=== PATIENT | female | born 2000 | race Caucasian/White ===

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

== ENCOUNTER 2019-04-28 16:55 | Outpatient (CLI) | payer OTHER ==
[2019-04-28 17:35] VITALS: BP 125/77; PULSE 84; RESP 17; TEMP 97
--- NOTE | 2019-05-19 12:43 | P.MSEPDOC ---
Presenting Problems - Arrival Data Date of Arrival on Unit: 04/28/19 Time of Arrival on Unit: 16:55 Mode of Transport: Ambulatory - Complaint OB-Reason for Admission/Chief Complaint: Decreased Movement Comment: pt here with c/o of no movement since 0100 today, pt reports lower back for last several weeks, abd soft and non tender, denies regular contractions, denies lof/vb, denies complications with Medical History - Information : 1 Para: 0 Term: 0 : 0 Abortions: Spontaneous or Elective: 0 Number of Living Children: 0 - Gestational Age Gestational Age by ISABEL (wks/days): 38 Weeks and 1 Days Review of Systems - Review of Systems Constitutional: No problems Breast: No problems ENT: No problems Cardiovascular: No problems Respiratory: No problems Gastrointestinal: No problems Genitourinary: No problems Musculoskeletal: No problems Neurological: No problems Skin: No problems Vital Signs - Temperature Temperature: 97.0 F Temperature Source: Temporal Artery Scan - Pulse Right Brachial Pulse Rate: 84 Pulse Assessment Method: Automatic Cuff - Respirations Respiratory Rate: 17 Oxygen Delivery Method: Room Air O2 Sat by Pulse Oximetry: 98 - Blood Pressure Right Arm Blood Pressure: 125/77 Blood Pressure Mean: 93 Blood Pressure Source: Automatic Cuff Medical Screen Scoring (Pre) - Cervical Exam Dilation: Exam Deferred Effacement: Exam Deferred Membranes: Intact - Uterine Contractions Frequency: N/A Duration: N/A Intensity: N/A - Maternal Vital Signs Maternal Temperature: N/A Maternal Blood Pressure: N/A Signs of Preeclampsia: N/A Maternal Respirations: N/A - Maternal Trauma Maternal Trauma: N/A - Assessment - Baby A Baseline FHR: 140 Heart Rate - NICHD Category: Category I (Normal) = 0 NST: Reactive Position: N/A Station: N/A - Total Score - Baby A Total Score - Baby A: 0 - Total Score - Baby B Total Score - Baby B: 0 - Total Score - Baby C Total Score - Baby C: 0 - Level of Risk - Baby A Level of Risk - Baby A: Low (0-5) - Level of Risk - Baby B Level of Risk - Baby B: Low (0-5) - Level of Risk - Baby C Level of Risk - Baby C: Low (0-5) Physician Notification (Pre) - Physician Notified Physician Notified Date: 04/28/19 Physician Notified Time: 17:21 Physician/Practitioner Notifed:: Dr Renteria Spoke With: Dr Renteria New Order Received: Yes (dc home) - Notification Comment Comment: pt ok to dc home at this time, pt has appt with dr donaldson thursday 05/03 Disposition - Disposition OB Disposition: Discharge to home, Written follow up instructions reviewed Discharge Date: 04/28/19 Discharge Time: 17:30 I agree with the RN Medical Screening Exam: Yes Risk & Benefit of care provided described in d/c instruction: Yes Diagnosis: DECREASED MOVEMENTS, THIRD TRIMESTER, UNSP
== END 2019-04-28 17:30 | disposition home or self-care (01) ==
LOC: FBPOP 16:55
PROVIDERS: ATTEND Obstetrics & Gynecology
DX: O36.8130 Decreased fetal movements, third trimester, not applicable or unspecified (principal); Z3A.38 38 weeks gestation of pregnancy
CPT/HCPCS: 59025; 99213

== ENCOUNTER 2019-05-06 05:54 | Inpatient (IN) | payer OTHER ==
[2019-05-06] MEDS ORDERED: CARBOPROST TROMETHAMINE 250 MCG/ML 1 ML AMP IM PRN (06:05)
[2019-05-06] MEDS ORDERED: METHYLERGONOVINE 0.2 MG/ML 1 ML AMP IM PRN (06:05)
[2019-05-06] MEDS ORDERED: TERBUTALINE 1 MG/ML VIAL SQ PRN (06:05)
[2019-05-06] MEDS ORDERED: LIDOCAINE 0.5% (PF) 5 MG/ML (50 ML SDV) SQ PRN (06:05)
[2019-05-06] MEDS ORDERED: OXYTOCIN 10 UNIT/ML 1 ML VIAL IM PRN (06:05)
[2019-05-06 06:15] VITALS: BMI 33.8
[2019-05-06] MEDS ORDERED: OXYTOCIN 30 UNITS/500 ML NS 30 UNIT in SALINE 1 500ML.BAG IV SCH (06:15)
[2019-05-06 06:16] LABS: Basophils # (A) 0.1 k/uL (0-0.2); Basophils % (A) 0 %; Eosinophils # (A) 0.2 k/uL (0-0.7); Eosinophils % (A) 2 %; HCT 39.8 % (34.0-46.0); HGB 13.4 gm/dL (11.4-16.0); Lymphocytes # (A) 2.9 k/uL (1.0-4.8); Lymphocytes % (A) 21 %; MCH 29.7 pg (25.0-35.0); MCHC 33.7 g/dL (31.0-37.0); MCV 88.1 fL (80.0-100.0); Mean Platelet Volume 7.2; Monocytes # (A) 0.8 k/uL (0-1.0); Monocytes % (A) 6 %; Neutrophils # (A) 9.1 k/uL (1.3-7.7); Neutrophils % (A) 68 %; Platelet Count 277 k/uL (150-450); RBC 4.52 m/uL (3.80-5.40); RDW 13.8 % (11.5-15.5); WBC 13.4 k/uL (4.0-11.0)
[2019-05-06] MEDS: LACTATED RINGERS 1,000 ML IV SCH ×2 (06:16→11:08)
--- NOTE | 2019-05-06 09:42 | P.HPOB ---
History of Present Illness H&P Date: 05/06/19 Chief Complaint: IUP at 39-2/7 weeks, elective induction of labor This is a pleasant 19-year-old 1 para 0 at 39 and 2/sevenths weeks, estimated due date of 05/11. Patient has good dating parameters with last menstrual period equal to a and 11 week ultrasound. Patient has been receiving routine care with myself that has been essentially uncomplicated. Tod ay patient notes good movement she notes an occasional contraction denies vaginal bleeding loss of fluid. On patient's bloodwork should a blood type of O+, rubella immune, RPR nonreactive, hep Rosaura surface antigen negative, HIV negative, she did pass her 1 hour Glucola on 02/10, group beta strep negative on 04/08. Review of Systems Constitutional: Denies chills, Denies fatigue, Denies fever Ears, nose, mouth and throat: Denies headache Cardiovascular: Reports leg edema Respiratory: Denies dyspnea Gastrointestinal: Denies nausea, Denies vomiting Genitourinary: Reports Past Medical History Past Medical History: No Reported History Additional Past Medical History / Comment(s): ibs History of Any Multi-Drug Resistant Organisms: None Reported Past Surgical History: No Surgical Hx Reported Past Anesthesia/Blood Transfusion Reactions: No Reported Reaction Past Psychological History: No Psychological Hx Reported Smoking Status: Former smoker Past Alcohol Use History: None Reported Past Drug Use History: None Reported - Past Family History Mother Family Medical History: No Reported History Medications and Allergies Home Medications Medication Instructions Recorded Confirmed Type Pnv,Calcium 72/Iron/Folic Acid 1 each PO DAILY 05/06/19 05/06/19 History [ Plus Tablet] Allergies Allergy/AdvReac Type Severity Reaction Status Date / Time strawberry AdvReac Severe Swelling Verified 05/06/19 06:04 Exam Osteopathic Statement: *. No significant issues noted on an osteopathic structural exam other than those noted in the History and Physical/Consult. Vital Signs Temp Pulse Resp BP Pulse Ox 05/06/19 06:11 97.7 F 90 15 142/83 98 Intake and Output 05/05/19 05/06/19 05/06/19 22:59 06:59 14:59 Other: Weight 86.636 kg Targeted physical exam is performed on this patient in general this a well- nourished well-developed female in no acute distress, reading is noted to be nonlabored her heart has regular rate and rhythm her abdomen is gravid and appropriate for gestational age, heart tones are noted to be category 1 and she is alexandre every 4 minutes, on vaginal exam she is 4/80/-2 amniotomy is performed and clear fluid was obtained. Results Result Diagrams: 05/06/19 06:08 Abnormal Lab Results - Last 24 Hours (Table) 05/06/19 Range/Units 06:08 WBC 13.4 H (4.0-11.0) k/uL Neutrophils # 9.1 H (1.3-7.7) k/uL Assessment and Plan (1) Term Current Visit: Yes Status: Acute Code(s): Z34.90 - ENCNTR FOR SUPRVSN OF NORMAL , UNSP, UNSP TRIMESTER SNOMED Code(s): 31221019 Plan: Patient is admitted for Pitocin induction of labor, anticipate spontaneous vaginal delivery later today.
[2019-05-06] MEDS ORDERED: ROPIVACAINE 5MG/ML 20ML VIAL ONE (10:43)
[2019-05-06] MEDS ORDERED: fentaNYL (PF) 50 MCG/ML 5 ML AMP ONE (10:43)
[2019-05-06] MEDS ORDERED: SODIUM CHLORIDE 0.9% 100 ML BAG ONE (10:43)
[2019-05-06] MEDS ORDERED: ZOLPIDEM 5 MG TAB PO PRN (17:59)
[2019-05-06] MEDS ORDERED: ACETAMINOPHEN TAB 325 MG TAB PO PRN (17:59)
[2019-05-06] MEDS ORDERED: diphenhydrAMINE 50 MG/ML 1 ML VIAL IVP PRN ×2 (17:59)
[2019-05-06] MEDS ORDERED: diphenhydrAMINE 50 MG CAP PO PRN (17:59)
[2019-05-06] MEDS ORDERED: WITCH HAZEL 1 EACH MED..PAD TOPICAL PRN (17:59)
[2019-05-06] MEDS ORDERED: HYDROcodone/APAP 5-325MG 1 EACH TAB PO PRN (17:59)
[2019-05-06] MEDS ORDERED: HYDROCORTISONE 2.5% RECTAL CREAM 30 GM TUBE RECTAL PRN (17:59)
[2019-05-06] MEDS ORDERED: SIMETHICONE 80 MG CHEWABLE PO PRN (17:59)
[2019-05-06] MEDS ORDERED: diphenhydrAMINE 25 MG CAP PO PRN (17:59)
[2019-05-06] MEDS ORDERED: LANOLIN CREAM 5 GM TUBE TOPICAL PRN (17:59)
[2019-05-06] MEDS ORDERED: BENZOCAINE/MENTHOL SPRAY 1 GM/SPRAY AEROSOL TOPICAL PRN (17:59)
[2019-05-06] MEDS ORDERED: OXYTOCIN 20 UNITS/1000 ML NS 1,000 ML IV SCH (18:00)
--- NOTE | 2019-05-06 18:02 | P.PROBDLV ---
Vaginal Delivery Note - . Vaginal Delivery Note: This is a pleasant 19-year-old 1 para 0 that presented to labor and delivery this morning for elective induction of labor at 39 and 2/sevenths weeks. Patient had a relatively uncomplicated . And had routine care with myself. Patient was admitted Pitocin induction of labor was begun. Once regular contractions were noted amniotomy was performed and clear fluid was obtained. Patient progressed through labor becoming uncomfortable. Patient requested epidural placement which was placed by the anesthesia Department without difficulty. Patient progressed to complete began pushing and had a normal spontaneous vaginal delivery of a viable female at 1742, weight of 6 lbs. 10 oz. with Apgars of 9 and 9 at one and 5 minutes or sexually. After a two-minute delayed the umbilical cord was doubly clamped and cut and the placenta was delivered spontaneously intact with a three-vessel cord being noted. On inspection the patient's vaginal vault a left labial laceration was noted along with a first-degree vaginal laceration. The labial laceration was noted to be bleeding therefore was reapproximated in the usual fashion. The first-degree vaginal laceration was about 2 cm in length and reapproximated with 3-0 Rapide in the normal fashion. Afterwards hemostasis was appreciated the vaginal vault was inspected and no further lacerations were noted. The uterus was noted to be firm and below the umbilicus, estimated blood loss 300 mL. Next Patient and tolerated delivery well and are resting comfortably.
[2019-05-06] MEDS: SENNOSIDES-DOCUSATE SODIUM 1 EACH TAB PO SCH (20:53)
[2019-05-07] MEDS: IBUPROFEN 600 MG TAB PO PRN ×3 (02:15→15:05)
[2019-05-07 06:58] LABS: Basophils # (A) 0.1 k/uL (0-0.2); Basophils % (A) 0 %; Eosinophils # (A) 0.2 k/uL (0-0.7); Eosinophils % (A) 1 %; HCT 37.3 % (34.0-46.0); HGB 12.7 gm/dL (11.4-16.0); Lymphocytes # (A) 2.9 k/uL (1.0-4.8); Lymphocytes % (A) 17 %; MCH 30.1 pg (25.0-35.0); MCHC 34.1 g/dL (31.0-37.0); MCV 88.3 fL (80.0-100.0); Mean Platelet Volume 7.5; Monocytes # (A) 0.8 k/uL (0-1.0); Monocytes % (A) 5 %; Neutrophils # (A) 12.9 k/uL (1.3-7.7); Neutrophils % (A) 75 %; Platelet Count 226 k/uL (150-450); RBC 4.23 m/uL (3.80-5.40); RDW 13.8 % (11.5-15.5); WBC 17.2 k/uL (4.0-11.0)
[2019-05-07 08:07] VITALS: TEMP 98.3
[2019-05-07] MEDS: SENNOSIDES-DOCUSATE SODIUM 1 EACH TAB PO SCH (08:10)
--- NOTE | 2019-05-07 08:42 | P.DS ---
Providers Date of admission: 05/06/19 05:54 Expected date of discharge: 05/07/19 Attending physician: Carolyn Muñoz Primary care physician: Giovanni Holbrook - Discharge Diagnosis(es) (1) Term Current Visit: Yes Status: Acute (2) Status post vaginal delivery Current Visit: Yes Status: Acute (3) Obstetric labial laceration, delivered, current hospitalization Current Visit: Yes Status: Acute (4) First degree perineal laceration Current Visit: Yes Status: Acute Hospital Course: This is a 19-year-old 1 para 1 that presented to labor and delivery at 39-2/7 weeks for elective induction of labor. Patient was admitted for further details please see the dictated history and physical. Patient was started on Pitocin for induction of labor, once regular contractions were noted amniotomy was performed and clear fluid was obtained. Patient became uncomfortable and requested epidural placement. Epidural was placed without difficulty by the anesthesia department. Patient progressed to complete began pushing and had a normal spontaneous vaginal delivery of a viable female at 17 2, weight of 6 lbs. 10 oz. with Apgars of 9 and 9 at one and 5 minutes respectively. During the delivery patient did sustain a left labial laceration which was repaired in the usual fashion along with a first-degree vaginal laceration approximately 1-2 cm in length. Patient's course has been uneventful. She is ambulating and voiding without difficulty. She states her lochia is moderate, she is bottle feeding. She does wish discharge home at 24 hours. Patient Condition at Discharge: Good Plan - Discharge Summary New Discharge Prescriptions: No Action Pnv,Calcium 72/Iron/Folic Acid [ Plus Tablet] 1 each PO DAILY Discharge Medication List Pnv,Calcium 72/Iron/Folic Acid [ Plus Tablet] 1 each PO DAILY 05/06/19 [History] Follow up Appointment(s)/Referral(s): Carolyn Muñoz DO [Doctor of Osteopathic Medicine] - 4 Weeks Patient Instructions/Handouts: Vaginal Delivery (DC), Vaginal Delivery (GEN)
[2019-05-07 16:15] VITALS: BP 123/68; PULSE 93; RESP 18
== END 2019-05-07 18:21 | disposition home or self-care (01) | DRG 807 ==
LOC: 4FBP 05:54
PROVIDERS: ADMIT Obstetrics & Gynecology Obstetrics; ATTEND Obstetrics & Gynecology Obstetrics
PROC: 10E0XZZ Delivery of Products of Conception, External Approach (ICD-10-PCS; principal; 2019-05-06)
PROC: 0HQ9XZZ Repair Perineum Skin, External Approach (ICD-10-PCS; 2019-05-06)
PROC: 3E033VJ Introduction of Other Hormone into Peripheral Vein, Percutaneous Approach (ICD-10-PCS; 2019-05-06)
PROC: 10907ZC Drainage of Amniotic Fluid, Therapeutic from Products of Conception, Via Natural or Artificial Opening (ICD-10-PCS; 2019-05-06)
PROC: 3E0R3BZ Introduction of Anesthetic Agent into Spinal Canal, Percutaneous Approach (ICD-10-PCS; 2019-05-06)
PROC: 00HU33Z Insertion of Infusion Device into Spinal Canal, Percutaneous Approach (ICD-10-PCS; 2019-05-06)
DX: O70.0 First degree perineal laceration during delivery (principal); Z37.0 Single live birth; O99.62 Diseases of the digestive system complicating childbirth; K58.9 Irritable bowel syndrome, unspecified; Z3A.39 39 weeks gestation of pregnancy; Z79.899 Other long term (current) drug therapy; Z87.891 Personal history of nicotine dependence; Z91.018 Allergy to other foods
CPT/HCPCS: 85025; 86850; 86900; 86901

== ENCOUNTER → 2024-03-21 | Outpatient (CLI) | payer OTHER ==
--- NOTE | 2024-03-22 10:18 | MR ---
EXAMINATION TYPE: MR knee RT wo con DATE OF EXAM: 03/22/2024 COMPARISON: None HISTORY: Rt knee inner and outer pain with locking and swelling since Jun 17 TECHNIQUE: Multiplanar, multisequence imaging of the right knee is performed without IV contrast. FINDINGS: There is no bone contusion or fracture. There is a small joint effusion. There is abnormal signal intensity in the cartilage of the medial patellar facet consistent with shakila dromalacia patella. The patellar and quadriceps tendons are intact. There is a horizontal tear of the body of the medial meniscus extending to the inferior surface. The lateral meniscus is intact. The cruciate and collateral ligaments are intact. IMPRESSION: 1. Tear of the body of the medial meniscus as described above. 2. Chondromalacia patella.
== END | disposition home or self-care (01) ==
LOC: RADMRIMAIN 16:41
PROVIDERS: ATTEND Orthopaedic Surgery
DX: S83.241A Other tear of medial meniscus, current injury, right knee, initial encounter (principal); M23.8X1 Other internal derangements of right knee; M22.41 Chondromalacia patellae, right knee